=== PATIENT | female | born 1975 | race Caucasian/White ===

== ENCOUNTER → 2024-04-12 12:43 | Outpatient (REF) | payer BC, SELFPAY | LOC: WDC 12:43 | PROVIDERS: ATTENDING PHYSICIAN Family Medicine | DX: Z12.31 Encounter for screening mammogram for malignant neoplasm of breast (principal); R92.8 Other abnormal and inconclusive findings on diagnostic imaging of breast | CPT/HCPCS: 76642; 77063; 77067 ==